=== PATIENT | female | born 1930 | race Asian ===

== ENCOUNTER 2018-08-25 20:13 | Inpatient (IN) | payer MEDICAID, MEDICARE ==
[~2018-08-25] VITALS: Ht 154.9 cm; Wt 68.9 kg
[~2018-08-25 20:13] MED LIST: ALEN70TA3 PO; AMLO5TAB4 PO; ASPI-1154 PO; GLIM2TAB58 PO; HCT25 PO; LOSA25TA3 PO; METO-442 PO; NEU100 PO; PIOG15TA8 PO; SIMV40TA2 PO
[2018-08-25 20:18] VITALS: BP_SYST 169
--- NOTE | 2018-08-25 20:23 | NUR ---
Placed in room 5 . Placed on air sampling and monitoring, blood pressure machine and pulse oximeter. To gown for exam. Side rails up. Report given to ETIENNE ELIZABETH.
--- NOTE | 2018-08-25 20:24 | NUR ---
Pt was brought in by niece complaining of shortness of breath, generalized weakness, and headache for the past month. Per niece, pt came back from the [facility] on 07/28/18 and a few days after is when pt started to feel short of breath and weak. Niece reports pt was seen at the hospital in the [facility] for swelling to bilateral lower extremities and was given Lasix. Pt denies chest pain. No other injuries/complaints per patient or noted.
--- NOTE | 2018-08-25 20:25 | NUR ---
RAMAN Li at bedside examining patient.
[2018-08-25] MEDS ORDERED: IBUPROFEN 400 MG TABLET PO ONE (20:30)
[2018-08-25] MEDS ORDERED: NS 500 ML IV ONE (20:30)
--- NOTE | 2018-08-25 20:44 | NUR ---
Xray at bedside, pt tolerated well.
[2018-08-25 20:49] LABS: BASOPHILS # (AUTO) 0.1 K/uL (0.0-0.2); BASOPHILS % (AUTO) 0.9 % (0.0-2.0); EOSINOPHILS # (AUTO) 0.2 K/uL (0.0-0.4); EOSINOPHILS % (AUTO) 2.4 % (0.0-4.0); HEMATOCRIT 38.8 % (36-48); HEMOGLOBIN 12.5 g/dL (12.0-16.0); LYMPHOCYTES # (AUTO) 2.1 K/uL (1.0-5.5); LYMPHOCYTES % (AUTO) 24.7 % (20.5-51.5); MEAN CORPUSCULAR HEMOGLOBIN 26 pg (27-31); MEAN CORPUSCULAR HGB CONC 32 % (32-36); MEAN CORPUSCULAR VOLUME 80 fL (79.0-98.0); MONOCYTES # (AUTO) 0.7 K/uL (0.0-1.0); MONOCYTES % (AUTO) 8.6 % (1.7-9.3); NEUTROPHILS # (AUTO) 5.4 K/uL (1.8-7.7); NEUTROPHILS % (AUTO) 63.4 % (40.0-70.0); PLATELET COUNT (AUTO) 255 K/uL (130-430); RED BLOOD CELL COUNT(AUTO) 4.83 MIL/uL (4.2-6.2); RED CELL DISTRIBUTION WIDTH 17.4 % (9.0-15.0); WHITE BLOOD COUNT (AUTO) 8.5 K/uL (4.8-10.8)
[2018-08-25 21:00] LABS: ANION GAP 12 (5-15); CALCIUM 8.9 mg/dL (8.4-11.0); CHLORIDE 95 mmol/L (98-107); CREATININE 1.67 mg/dL (0.55-1.30); GLUCOSE 274 mg/dL (70-99); POTASSIUM 3.1 mmol/L (3.5-5.1); SODIUM SERUM 132 mmol/L (136-145); UREA NITROGEN, BLOOD 22 mg/dL (8-21)
--- NOTE | 2018-08-25 21:00 | NUR ---
Assisted patient onto commode for urine sample. Fatimah, EMT, and nurse assisted patient back to [facility]. Pt resting comfortably in bed. Niece at bedside.
[2018-08-25 21:11] LABS: ALANINE AMINOTRANSFERASE 33 U/L (12-78); ALBUMIN 3.4 g/dL (3.4-4.8); ASPARTATE AMINOTRANSFERASE 27 U/L (10-37); TOTAL BILIRUBIN 0.4 mg/dL (0.0-1.0)
[2018-08-25 21:12] LABS: BILIRUBIN,URINE NEGATIVE (NEGATIVE); BLOOD, URINE 1+ (NEGATIVE); CLARITY/URINE CLEAR (CLEAR); COLOR,URINE YELLOW (YELLOW); GLUCOSE,URINE TRACE (NEGATIVE); KETONES,URINE NEGATIVE (NEGATIVE); LEUKOCYTE ESTERASE ,URINE TRACE (NEGATIVE); NITRITE, URINE NEGATIVE (NEGATIVE); PH,URINE 5.5 (5.0-8.0); PROTEIN URINE 1+ (NEGATIVE); UROBILINOGEN,URINE 0.2 (0.2-1.0)
[2018-08-25] MEDS ORDERED: POTASSIUM CHLORIDE 20 MEQ TAB.PRT.SR PO ONE (21:15)
[2018-08-25] MEDS ORDERED: DITXL5 PO (21:29)
[2018-08-25] MEDS ORDERED: ALBMDI INH (21:29)
[2018-08-25] MEDS ORDERED: NOR10 PO (21:29)
[2018-08-25] MEDS ORDERED: BLOO-1609 MC (21:29)
[2018-08-25] MEDS ORDERED: CILO100T PO (21:29)
[2018-08-25] MEDS ORDERED: HYDR-4038 PO (21:29)
[2018-08-25] MEDS ORDERED: INSNLG7030 SUBCUT (21:29)
[2018-08-25] MEDS ORDERED: ASPI-1153 PO (21:29)
[2018-08-25] MEDS ORDERED: FEBU80TA PO (21:29)
[2018-08-25] MEDS ORDERED: LOSA100T3 PO (21:29)
[2018-08-25] MEDS ORDERED: VERA120C2 PO (21:29)
[2018-08-25] MEDS ORDERED: GABA-529 PO (21:29)
[2018-08-25] MEDS ORDERED: [UNRECOGNIZED DRUG - CODE] PO (21:29)
[2018-08-25] MEDS ORDERED: BLOO-1091 MC (21:29)
[2018-08-25] MEDS ORDERED: BUSP5TAB3 PO (21:29)
[2018-08-25] MEDS ORDERED: GABA-531 PO (21:29)
[2018-08-25] MEDS ORDERED: DOCU-144 PO (21:29)
[2018-08-25] MEDS ORDERED: SIMV20TA6 PO (21:29)
[2018-08-25] MEDS ORDERED: ACET325C4 PO (21:29)
[2018-08-25] MEDS ORDERED: GLIM4TAB PO (21:29)
[2018-08-25] MEDS ORDERED: ALEN10TA6 PO (21:29)
[2018-08-25] MEDS ORDERED: LOSA50TA28 PO (21:29)
[2018-08-25] MEDS ORDERED: FURO-150 PO (21:29)
[2018-08-25] MEDS ORDERED: RANI-362 PO (21:29)
--- NOTE | 2018-08-25 21:30 | NUR ---
Medication reconciliation completed with information provided by family. Any prior medication reconciliation on file was reviewed and corrected.
--- NOTE | 2018-08-25 21:31 | NUR ---
RT at bedside obtaining ABG. Pt tolerated well.
[2018-08-25 21:32] LABS: BACTERIA,URINE MODERATE /HPF (None Seen)
[2018-08-25] MEDS ORDERED: INSULIN REGULAR, HUMAN 100 UNITS/ML, 10 ML VIAL SUBCUT ONE (21:45)
[2018-08-25] MEDS ORDERED: hydrALAZINE HCL 20 MG/ML VIAL IVP ONE (22:00)
[2018-08-25] MEDS ORDERED: cefTRIAXone 1 GM IVPB PREMIX 50 ML IV ONE (22:00)
[2018-08-25] MEDS ORDERED: INSULIN REGULAR, HUMAN 10 UNITS/0.1 ML INJ ONE (22:05)
--- NOTE | 2018-08-25 22:21 | NUR ---
Patient will be admitted to care of Dr. Skaggs. Admitted to Telemetry unit. Will go to room 135. Belongings list completed. Summary report printed. Report will be given at bedside.
--- NOTE | 2018-08-25 22:22 | NUR ---
Transfer to Telemetry via ACLS protocol. Licensed nurse present. IV present no signs or symptoms of infiltration.
--- NOTE | 2018-08-25 22:29 | NUR ---
ADMISSION: The patient, MARCOS ANDERSON, 88 y/o, F admitted by BARRETT ARORA MD, WITH THE DIAGNOSIS OF NEW ONSET OF CHF , TO 135 , WILL MOVE TO 102 A AFTER ADMISSION PROCESS FINISH , was given written information regarding hospital policies, unit procedures and contact persons.
[2018-08-25 22:30] VITALS: BP_SYST 155
[2018-08-25 23:12] VITALS: BP_SYST 158
--- NOTE | 2018-08-25 23:27 | NUR ---
SEEN BY DR. ARORA.
[2018-08-25] MEDS ORDERED: ALENDRONATE SODIUM 10 MG TABLET (FOSAMAX) PO SCH (23:30)
[2018-08-25] MEDS ORDERED: LevALBUTEROL HCL 1.25 MG/0.5 ML *CONC.* VIAL.NEB (XOPENEX CONC.) INH PRN (23:30)
--- NOTE | 2018-08-25 23:48 | NUR ---
MORNING CONSULT REASON FOR CONSULT: CHF PERSON I SPOKE WITH: MARY CARMEN CONSULTING PHYSICIAN: DR. SIMONS SECURITIES SALES ASSOCIATE PHONE NUMBER: [phone] ORDERING PHYSICIAN: DR. ARORA
[2018-08-25] MEDS: POTASSIUM CHLORIDE 20 MEQ TAB.PRT.SR PO SCH (23:51)
[2018-08-26 00:30] VITALS: BP_SYST 158
--- NOTE | 2018-08-26 01:36 | NUR ---
ROUNDS Pt is resting in bed with both eyes closed, with visible chest rise and fall with unlabored breathing noted. No complains of pain and no signs of acute distress noted. No needs at this time. Safety precautions in place and call light with pt. Will continue to monitor.
[2018-08-26] MEDS: LevALBUTEROL HCL 1.25 MG/0.5 ML *CONC.* VIAL.NEB (XOPENEX CONC.) INH SCH ×5 (01:51→19:57)
--- NOTE | 2018-08-26 03:10 | NUR ---
ROUNDS Assisted pt to the bedside commode and pt tolerated well. No complains of pain and no signs of acute distress noted. Safety precautions in place and call light with pt. Will continue to monitor.
[2018-08-26 05:32] LABS: BASOPHILS # (AUTO) 0.1 K/uL (0.0-0.2); BASOPHILS % (AUTO) 0.5 % (0.0-2.0); EOSINOPHILS # (AUTO) 0.1 K/uL (0.0-0.4); EOSINOPHILS % (AUTO) 1.4 % (0.0-4.0); HEMATOCRIT 35.5 % (36-48); HEMOGLOBIN 11.6 g/dL (12.0-16.0); LYMPHOCYTES # (AUTO) 2.7 K/uL (1.0-5.5); LYMPHOCYTES % (AUTO) 28.9 % (20.5-51.5); MEAN CORPUSCULAR HEMOGLOBIN 26 pg (27-31); MEAN CORPUSCULAR HGB CONC 33 % (32-36); MEAN CORPUSCULAR VOLUME 80 fL (79.0-98.0); MONOCYTES % (AUTO) 10.7 % (1.7-9.3); NEUTROPHILS # (AUTO) 5.5 K/uL (1.8-7.7); NEUTROPHILS % (AUTO) 58.5 % (40.0-70.0); PLATELET COUNT (AUTO) 228 K/uL (130-430); RED BLOOD CELL COUNT(AUTO) 4.46 MIL/uL (4.2-6.2); RED CELL DISTRIBUTION WIDTH 17.6 % (9.0-15.0); WHITE BLOOD COUNT (AUTO) 9.5 K/uL (4.8-10.8)
[2018-08-26 05:46] LABS: ANION GAP 10 (5-15); CALCIUM 8.7 mg/dL (8.4-11.0); CHLORIDE 101 mmol/L (98-107); CREATININE 1.33 mg/dL (0.55-1.30); GLUCOSE 85 mg/dL (70-99); POTASSIUM 3.1 mmol/L (3.5-5.1); SODIUM SERUM 138 mmol/L (136-145); UREA NITROGEN, BLOOD 22 mg/dL (8-21)
[2018-08-26] MEDS: INSULIN REGULAR, HUMAN 100 UNITS/ML, 10 ML VIAL (humuLIN R) SUBCUT PRN ×4 (06:05→20:56)
--- NOTE | 2018-08-26 06:23 | NUR ---
CLOSING NOTES Pt is resting in bed with both eyes closed, with visible chest rise and fall with unlabored breathing noted. No signs of acute distress or SOB noted. No complains of pain or discomfort at this time. All needs attended throughout the shift. Safety precautions maintained with 3 side rails up, wheels locked, bed alarm on and in lowest level. Call light with pt. Will endorse to day shift nurse.
[2018-08-26] MEDS: GLIMEPIRIDE 2 MG TABLET PO SCH (06:55)
--- NOTE | 2018-08-26 07:50 | NUR ---
INITIAL NOTE RECEIVED PT IN BED, NO S/S OF DISTRESS OR SOB NOTED, PT HAS NO C/O PAIN AT THIS TIME, PT IN STABLE CONDITION. PT AAOX4, VERBAL, IV CATHETER PATENT, NO SIGNS OF INFECTION OR INFILTRATION NOTED, SALINE LOCK. BED AT LOWEST POSITION, CALL LIGHT WITHIN REACH, WILL CONTINUE TO MONITOR PT FOR ANY CHANGES, SAFETY AND FALL PRECAUTIONS IN PLACE. PT ON OXYGEN 2 LITERS VIA NASAL CANNULA, SATURATION OF 96%.
[2018-08-26 08:10] VITALS: BP_SYST 163
[2018-08-26] MEDS: VERAPAMIL HCL 120 MG TABLET.SA PO SCH (08:15)
[2018-08-26] MEDS: POTASSIUM CHLORIDE 20 MEQ TAB.PRT.SR PO SCH (08:16)
[2018-08-26] MEDS: LOSARTAN POTASSIUM 50 MG TABLET (COZAAR) PO SCH (08:16)
[2018-08-26] MEDS: hydrALAZINE HCL 25 MG TABLET PO SCH ×2 (08:16→20:49)
[2018-08-26] MEDS: amLODIPine BESYLATE 10 MG TABLET PO SCH (08:17)
[2018-08-26] MEDS: ASPIRIN 81 MG TABLET(ECOTRIN) PO SCH (08:17)
[2018-08-26] MEDS: GABAPENTIN 300 MG CAPSULE PO SCH ×2 (08:17→20:48)
[2018-08-26] MEDS: busPIRone HCL 5 MG TABLET PO SCH (08:17)
[2018-08-26] MEDS: FUROSEMIDE 20 MG/2 ML VIAL IVP SCH ×2 (08:18→20:50)
[2018-08-26] MEDS: INSULIN Aspart Prota/Aspar MIX 70-30, 100 UNITS/ML, 10 ML VIAL SUBCUT SCH ×2 (08:25→20:55)
[2018-08-26] MEDS: CILOSTAZOL 50 MG TABLET (PLETAL) PO SCH (08:58)
[2018-08-26] MEDS: DOCUSATE SODIUM 100 MG/10 ML UDC PO SCH ×2 (08:58→20:47)
[2018-08-26] MEDS: OXYBUTYNIN CHLORIDE 5 MG TABLET PO SCH ×2 (08:58→20:48)
[2018-08-26] MEDS ORDERED: NON-FORMULARY MEDICATION (Febuxostat (Uloric) 40 MG) PO SCH (09:00)
--- NOTE | 2018-08-26 10:55 | NUR ---
ROUNDS PT IN BED, NO S/S OF DISTRESS OR SOB, PT RESTING COMFORTABLY, PT IN STABLE CONDITION. WILL CONTINUE TO MONITOR PT FOR ANY CHANGES. NO C/O PAIN.PT WATCHING TV.
[2018-08-26 11:31] VITALS: BP_SYST 136
--- NOTE | 2018-08-26 12:40 | NUR ---
ROUNDS PT IN BED, NO S/S OF DISTRESS OR SOB, PT RESTING COMFORTABLY, PT IN STABLE CONDITION. WILL CONTINUE TO MONITOR PT FOR ANY CHANGES. NO C/O PAIN. FAMILY AT BEDSIDE.
--- NOTE | 2018-08-26 14:25 | NUR ---
ROUNDS PT IN BED, NO S/S OF DISTRESS OR SOB, PT RESTING COMFORTABLY, PT IN STABLE CONDITION. WILL CONTINUE TO MONITOR PT FOR ANY CHANGES. NO C/O PAIN.
[2018-08-26 15:32] VITALS: BP_SYST 124
[2018-08-26] MEDS ORDERED: POTASSIUM CHLORIDE 20 MEQ TAB.PRT.SR PO ONE (16:00)
--- NOTE | 2018-08-26 16:00 | NUR ---
MD ROUNDS DR ARORA ROUNDING, AWARE OF PATIENT'S CONDITION, NEW ORDERS GIVEN.
--- NOTE | 2018-08-26 16:07 | NUR ---
CASE MANAGEMENT: CM SPOKE WITH DR. ARORA AND INFORM HIM THAT PATIENT INSURANCE IS OUT OF NETWORK. PER DR. RAORA, PATIENT WILL POSSIBLY BE DISCHARGE TOMORROW IF STABLE. CM TO FOLLOW UP NEEDED.
--- NOTE | 2018-08-26 18:37 | NUR ---
CLOSING NOTE PT IN BED, NO S/S OF DISTRESS OR SOB NOTED, PT HAS NO C/O PAIN AT THIS TIME, PT IN STABLE CONDITION. PT AAOX4, VERBAL, IV CATHETER PATENT, NO SIGNS OF INFECTION OR INFILTRATION NOTED, SALINE LOCK. BED AT LOWEST POSITION, CALL LIGHT WITHIN REACH, WILL ENDORSE CARE OF PT TO INCOMING NURSE, SAFETY AND FALL PRECAUTIONS IN PLACE.
[2018-08-26 19:00] VITALS: BP_SYST 111
--- NOTE | 2018-08-26 19:00 | NUR ---
change of shift.pt.was assisted to the restroom;per analyn;shift production supervisor;gait assessed unsteady requires assistance.bsc available. pt.attended she prefers the restroom but maintain the bsc close to the bed.no c/o pain,nausea.general status stable.respiratory sta stable@room air.call light/telephone placed w/in the reach of the pt.
--- NOTE | 2018-08-26 20:00 | NUR ---
pt.assessed.v/s assessed;values w/in normal limits;diastolic value low;noted.pt.presents quiescent affect;calm.family@the bedside;pt's primary language tagalog;swedish;fluent.i have inquired if the pt.presents pain,nausea.pt.has stated no.she is fine.i have apprised the pt.that snacks/beverages are available w/in the shift.no requests@this hour.i have apprised the pt.that if she become cold to requests blankets.general status stable.respiratory status stable.call light/telephone w/in the reach of the pt.pt.capable to repositio self.
--- NOTE | 2018-08-26 20:30 | NUR ---
i have assessed the blood glucose;value;203mg/dl.
[2018-08-26] MEDS: SIMVASTATIN 20 MG TABLET PO SCH (20:48)
[2018-08-26] MEDS: FAMOTIDINE 20 MG TABLET PO SCH (20:48)
[2018-08-26] MEDS: ENOXAPARIN SODIUM 30 MG/0.3 ML SYRINGE SUBCUT SCH (20:57)
--- NOTE | 2018-08-26 21:00 | NUR ---
2100p medications administered.i have administered;lasix;20mg ivp; i have apprised the pt/family that the pt.will urinate in excess for the proximate 2-3hrs;pt.understanding to call nsg for assistance to the restroom/bsc.i have administered;regular: insulin;4-units per sliding scale./i have administered humalog;mix;70-30 20 units.i have administered lovenox;30mg sq. pty.has requested snacks. have provided saltine crackers/jello x1 cup.i have apprised pt.to presents additional requests snacks;no reservations.
--- NOTE | 2018-08-26 22:00 | NUR ---
pt.assessed.pt.had requested assistance;to urinate.pt.assisted to the bsc;per analyn;lamp shades supervisor.pt.assisted return to bed. no c/o pain,nausea.pt.capable to reposition self.general status stable.respiratory status stable.call light/telephone placed w/in the reach of the pt.
--- NOTE | 2018-08-27 | NUR ---
pt.assessed.v/s assessed;pt.had requested medication;pain:pt.stated 2/t cramps.i have administered tylenol:650mg po;to f/u re:pain medication efficacy per pain mgx protocol.pt.assessed for cleanliness.pt.capable to reposition self.call light/telephone placed w/in the reach of the pt.
[2018-08-27] MEDS: ACETAMINOPHEN 325 MG TABLET PO PRN ×3 (00:02→14:32)
[2018-08-27] MEDS: LevALBUTEROL HCL 1.25 MG/0.5 ML *CONC.* VIAL.NEB (XOPENEX CONC.) INH SCH ×4 (00:24→19:42)
[2018-08-27 00:53] VITALS: BP_SYST 142
--- NOTE | 2018-08-27 02:00 | NUR ---
pt.assessed.i have assisted the pt.to the bsc.i have attended to the bsc;cxegay5rr.cleaned.i have assisted the pt's repositioning in the bed.general status stable,respiratory status stable.call light/telephone placed w/in the reach of the pt.
--- NOTE | 2018-08-27 04:00 | NUR ---
pt.assessed.pt.present quiescent affect;calm,somnolent.general status stable.respiratory status stable@room air;unlabored. pt.capable to reposition self.call light./telephone placed w/in the reach of the pt.
[2018-08-27 06:18] LABS: ANION GAP 7 (5-15); CALCIUM 8.6 mg/dL (8.4-11.0); CHLORIDE 100 mmol/L (98-107); CREATININE 1.76 mg/dL (0.55-1.30); GLUCOSE 104 mg/dL (70-99); POTASSIUM 3.5 mmol/L (3.5-5.1); SODIUM SERUM 133 mmol/L (136-145); UREA NITROGEN, BLOOD 31 mg/dL (8-21)
[2018-08-27] MEDS: GLIMEPIRIDE 2 MG TABLET PO SCH (06:24)
--- NOTE | 2018-08-27 06:30 | NUR ---
i pt.ass i have assisted the pt.to the bsc.i have assisted the pt's return to bed;pt.repositioned.i have assessed the blood glucose; value;95mg/dl.i have weighed the pt:chf/lasix.pt.had requested tylenol;i have administered [id number] po;to f/u re;pain medication efficacy per pain mgx protocol.i have administered amaryl;general status stable.respiratory status stable;unlabored;call light/telephone placed w/in the reach of the pt.
--- NOTE | 2018-08-27 07:50 | NUR ---
INITIAL NOTE RECEIVED PT IN BED, NO S/S OF DISTRESS OR SOB NOTED, PT HAS NO C/O PAIN AT THIS TIME, PT IN STABLE CONDITION. PT AAOX4, VERBAL, IV CATHETER PATENT, NO SIGNS OF INFECTION OR INFILTRATION NOTED, SALINE LOCK. BED AT LOWEST POSITION, CALL LIGHT WITHIN REACH, WILL CONTINUE TO MONITOR PT FOR ANY CHANGES, SAFETY AND FALL PRECAUTIONS IN PLACE. PT ON ROOM AIR, SATURATION OF 97%.
[2018-08-27 08:30] VITALS: BP_SYST 145
[2018-08-27] MEDS: DOCUSATE SODIUM 100 MG/10 ML UDC PO SCH ×2 (08:39→20:58)
[2018-08-27] MEDS: busPIRone HCL 5 MG TABLET PO SCH (08:40)
[2018-08-27] MEDS: ASPIRIN 81 MG TABLET(ECOTRIN) PO SCH (08:40)
[2018-08-27] MEDS: POTASSIUM CHLORIDE 20 MEQ TAB.PRT.SR PO SCH (08:40)
[2018-08-27] MEDS: CILOSTAZOL 50 MG TABLET (PLETAL) PO SCH (08:40)
[2018-08-27] MEDS: GABAPENTIN 300 MG CAPSULE PO SCH ×2 (08:40→20:55)
[2018-08-27] MEDS: INSULIN Aspart Prota/Aspar MIX 70-30, 100 UNITS/ML, 10 ML VIAL SUBCUT SCH ×2 (08:41→21:13)
[2018-08-27] MEDS: OXYBUTYNIN CHLORIDE 5 MG TABLET PO SCH ×2 (08:52→20:54)
[2018-08-27] MEDS: amLODIPine BESYLATE 10 MG TABLET PO SCH (08:52)
[2018-08-27] MEDS: FUROSEMIDE 20 MG/2 ML VIAL IVP SCH ×2 (08:53→21:00)
--- NOTE | 2018-08-27 10:30 | NUR ---
ROUNDS PT IN BED, NO S/S OF DISTRESS OR SOB, PT RESTING COMFORTABLY, PT IN STABLE CONDITION. WILL CONTINUE TO MONITOR PT FOR ANY CHANGES. NO C/O PAIN. PT AMBULATED WITH PHYSICAL THERAPY.
[2018-08-27] MEDS: LOSARTAN POTASSIUM 50 MG TABLET (COZAAR) PO SCH (11:03)
[2018-08-27] MEDS: hydrALAZINE HCL 25 MG TABLET PO SCH ×2 (11:04→21:00)
[2018-08-27] MEDS: VERAPAMIL HCL 120 MG TABLET.SA PO SCH (11:07)
[2018-08-27] MEDS: INSULIN REGULAR, HUMAN 100 UNITS/ML, 10 ML VIAL (humuLIN R) SUBCUT PRN ×3 (11:13→21:59)
--- NOTE | 2018-08-27 12:10 | NUR ---
ROUNDS PT IN BED, NO S/S OF DISTRESS OR SOB NOTED, PT HAS NO C/O PAIN AT THIS TIME, PT IN STABLE CONDITION, PT WATCHING TV AND HAS VISITORS AT BEDSIDE, WILL CONTINUE TO MONITOR PT FOR ANY CHANGES.
[2018-08-27 12:37] VITALS: BP_SYST 152
--- NOTE | 2018-08-27 14:25 | NUR ---
ROUNDS PT IN BED, NO S/S OF DISTRESS OR SOB NOTED, PT HAS NO C/O PAIN, PT TALKING TO FAMILY AT BEDSIDE, WILL CONTINUE TO MONITOR PT FOR ANY CHANGES. PT IN STABLE CONDITION.
[2018-08-27 16:23] VITALS: BP_SYST 115
--- NOTE | 2018-08-27 17:17 | NUR ---
AFIB PATIENT HAS CONVERTED BACK TO AFIB ON TELE MONITOR, DR GAONA ROUNDING AND MADE AWARE. STATED HE WILL ASSESS HER.
--- NOTE | 2018-08-27 17:53 | NUR ---
MD ROUNDS DR ARORA ROUNDING, AWARE OF PATIENT'S CONDITION AND AWARE THAT PT HAS TREMORS AND LEG CRAMPS. MD GAVE NEW ORDERS AND SPOKE WITH FAMILY ABOUT PLAN OF CARE.
--- NOTE | 2018-08-27 18:19 | NUR ---
CLOSING NOTE PT IN BED, NO S/S OF DISTRESS OR SOB NOTED, PT HAS NO C/O PAIN AT THIS TIME, PT IN STABLE CONDITION. PT AAOX4, VERBAL, IV CATHETER PATENT, NO SIGNS OF INFECTION OR INFILTRATION NOTED, SALINE LOCK. BED AT LOWEST POSITION, CALL LIGHT WITHIN REACH, WILL ENDORSE CARE OF PT TO INCOMING NURSE, SAFETY AND FALL PRECAUTIONS IN PLACE. PT ON ROOM AIR, SATURATION OF 97%.
--- NOTE | 2018-08-27 19:24 | NUR ---
CONSULTATION PAGED YES REASON FOR CONSULTATION: TREMOR WAS CONSULT CALLED? YES PERSON WHO WAS NOTIFIED: RIZWAN CONSULTING PHYSICIAN:PACO Savage TECHNICAL EDUCATION TEACHER SPECIALTY: NEUROLOGY TECHNICAL EDUCATION TEACHER PHONE NUMBER: [phone] REQUESTING PHYSICIAN: DR. ARORA
[2018-08-27 19:45] VITALS: BP_SYST 95
--- NOTE | 2018-08-27 19:50 | NUR ---
INITIAL NOTE AT INITIAL ASSESSMENT, PATIENT IS RESTING IN BED, STABLE, NO SIGNS OF RESPIRATORY DISTRESS. PATIENT VERBALIZES NO PAIN. CALL LIGHT- TEACH BACK IS SUCCESSFUL. BED IS LOCKED, ALARMED, AND AT THE LOWEST LEVEL. FALL, SAFETY, AND RESPIRATORY PRECAUTIONS WILL BE IN PLACE THROUGHOUT THE SHIFT.
[2018-08-27] MEDS: FAMOTIDINE 20 MG TABLET PO SCH (20:54)
[2018-08-27] MEDS: SIMVASTATIN 20 MG TABLET PO SCH (20:54)
[2018-08-27] MEDS: ENOXAPARIN SODIUM 30 MG/0.3 ML SYRINGE SUBCUT SCH (21:01)
[2018-08-27] MEDS: AMIODARONE HCL 200 MG TABLET PO SCH (21:14)
--- NOTE | 2018-08-27 21:50 | NUR ---
NOTE BLOOD SUGAR CHECK AT THIS TIME REQUIRES INSULIN COVERAGE PER SSI ORDERED BY MD. AT THIS TIME, PATIENT IS RESTING IN BED, STABLE, NO SIGNS OF RESPIRATORY DISTRESS. CALL LIGHT IS WITHIN REACH. BED IS LOCKED, ALARMED, AND AT THE LOWEST LEVEL.
--- NOTE | 2018-08-27 23:50 | NUR ---
NOTE PATIENT IS SLEEPING, STABLE, NO SIGNS OF RESPIRATORY DISTRESS. CALL LIGHT IS WITHIN REACH. BED IS LOCKED, ALARMED, AND AT THE LOWEST LEVEL.
[2018-08-28 00:23] VITALS: BP_SYST 93
[2018-08-28] MEDS: LevALBUTEROL HCL 1.25 MG/0.5 ML *CONC.* VIAL.NEB (XOPENEX CONC.) INH SCH ×4 (01:25→18:30)
--- NOTE | 2018-08-28 01:50 | NUR ---
NOTE PATIENT IS SLEEPING, STABLE, NO SIGNS OF RESPIRATORY DISTRESS. CALL LIGHT IS WITHIN REACH. BED IS LOCKED, ALARMED, AND AT THE LOWEST LEVEL.
--- NOTE | 2018-08-28 03:03 | NUR ---
NOTE PATIENT IS SLEEPING, STABLE, NO SIGNS OF RESPIRATORY DISTRESS. CALL LIGHT IS WITHIN REACH. BED IS LOCKED, ALARMED, AND AT THE LOWEST LEVEL.
--- NOTE | 2018-08-28 05:03 | NUR ---
NOTE PATIENT IS SLEEPING, STABLE, NO SIGNS OF RESPIRATORY DISTRESS. CALL LIGHT IS WITHIN REACH. BED IS LOCKED, ALARMED, AND AT THE LOWEST LEVEL.
[2018-08-28] MEDS: GLIMEPIRIDE 2 MG TABLET PO SCH (06:16)
--- NOTE | 2018-08-28 06:59 | NUR ---
CLOSING NOTE BLOOD SUGAR CHECK THIS MORNING DID NOT REQUIRE INSULIN COVERAGE PER SSI ORDERED BY MD. PATIENT SLEPT WELL THROUGHOUT THE SHIFT. AT THIS TIME, SHE IS RESTING IN BED, STABLE, NO SIGNS OF RESPIRATORY DISTRESS. CALL LIGHT IS WITHIN REACH. BED IS LOCKED, ALARMED, AND AT THE LOWEST LEVEL. FALL, SAFETY, AND RESPIRATORY PRECAUTIONS HAVE BEEN IN PLACE THROUGHOUT THE NIGHT. WILL CONTINUE TO MONITOR UNTIL SHIFT REPORT IS GIVEN AT BEDSIDE TO AM NURSE.
[2018-08-28 07:45] LABS: ANION GAP 11 (5-15); CHLORIDE 96 mmol/L (98-107); CREATININE 2.46 mg/dL (0.55-1.30); GLUCOSE 147 mg/dL (70-99); POTASSIUM 4.5 mmol/L (3.5-5.1); SODIUM SERUM 131 mmol/L (136-145); UREA NITROGEN, BLOOD 40 mg/dL (8-21)
[2018-08-28 08:30] VITALS: BP_SYST 148
[2018-08-28] MEDS: DOCUSATE SODIUM 100 MG/10 ML UDC PO SCH ×2 (08:36→20:42)
[2018-08-28] MEDS: ASPIRIN 81 MG TABLET(ECOTRIN) PO SCH (08:37)
[2018-08-28] MEDS: busPIRone HCL 5 MG TABLET PO SCH (08:37)
[2018-08-28] MEDS: POTASSIUM CHLORIDE 20 MEQ TAB.PRT.SR PO SCH (08:37)
[2018-08-28] MEDS: OXYBUTYNIN CHLORIDE 5 MG TABLET PO SCH ×2 (08:37→20:42)
[2018-08-28] MEDS: GABAPENTIN 300 MG CAPSULE PO SCH ×2 (08:37→20:42)
[2018-08-28] MEDS: CILOSTAZOL 50 MG TABLET (PLETAL) PO SCH (08:38)
[2018-08-28] MEDS: amLODIPine BESYLATE 10 MG TABLET PO SCH (08:39)
[2018-08-28] MEDS: AMIODARONE HCL 200 MG TABLET PO SCH ×2 (08:39→20:43)
[2018-08-28] MEDS: FUROSEMIDE 20 MG/2 ML VIAL IVP SCH ×2 (08:39→20:42)
[2018-08-28] MEDS: INSULIN Aspart Prota/Aspar MIX 70-30, 100 UNITS/ML, 10 ML VIAL SUBCUT SCH ×2 (08:42→20:51)
[2018-08-28] MEDS: hydrALAZINE HCL 25 MG TABLET PO SCH ×2 (08:44→20:43)
[2018-08-28] MEDS: LOSARTAN POTASSIUM 50 MG TABLET (COZAAR) PO SCH (08:47)
--- NOTE | 2018-08-28 10:20 | NUR ---
ROUNDS PT IN BED, NO S/S OF DISTRESS OR SOB NOTED, PT HAS NO C/O PAIN AT THIS TIME, PT IN STABLE CONDITION, PT WATCHING TV AND HAS NEPHEW AT BEDSIDE VISITING, WILL CONTINUE TO MONITOR PT FOR ANY CHANGES.
[2018-08-28] MEDS: INSULIN REGULAR, HUMAN 100 UNITS/ML, 10 ML VIAL (humuLIN R) SUBCUT PRN ×3 (12:02→20:54)
--- NOTE | 2018-08-28 12:10 | NUR ---
ROUNDS PT IN BED, NO S/S OF DISTRESS OR SOB NOTED, PT HAS NO C/O PAIN AT THIS TIME, PT IN STABLE CONDITION, PT EATING LUNCH, WILL CONTINUE TO MONITOR PT FOR ANY CHANGES.
[2018-08-28 12:30] VITALS: BP_SYST 117
--- NOTE | 2018-08-28 12:37 | NUR ---
PAGED PAGED BARRETT PAK AT [phone] SPOKE WITH ESSIE.
--- NOTE | 2018-08-28 14:25 | NUR ---
ROUNDS PT IN BED, NO S/S OF DISTRESS OR SOB NOTED, PT HAS NO C/O PAIN AT THIS TIME, PT IN STABLE CONDITION, PT WATCHING TV, WILL CONTINUE TO MONITOR PT FOR ANY CHANGES.
--- NOTE | 2018-08-28 16:16 | NUR ---
MD ROUNDS DR ARORA ROUNDING, AWARE OF PATIENT'S CONDITION.
--- NOTE | 2018-08-28 16:55 | NUR ---
ROUNDS PT IN BED, NO S/S OF DISTRESS OR SOB NOTED, PT HAS NO C/O PAIN AT THIS TIME, PT IN STABLE CONDITION, PT TALKING WITH FAMILY AT BEDSIDE, WILL CONTINUE TO MONITOR PT FOR ANY CHANGES.
[2018-08-28 17:06] VITALS: BP_SYST 119; BP_SYST 127
[2018-08-28] MEDS ORDERED: MEROPENEM 1 GM IVPB PREMIX 50 ML IV ONE (18:00)
--- NOTE | 2018-08-28 18:36 | NUR ---
CLOSING NOTE PT IN BED, NO S/S OF DISTRESS OR SOB NOTED, PT HAS NO C/O PAIN AT THIS TIME, PT IN STABLE CONDITION. PT AAOX4, VERBAL, IV CATHETER INFILTRATED, REMOVED IV CATHETER, NO ACTIVE BLEEDING NOTED, DRESSING IN PLACE. BED AT LOWEST POSITION, CALL LIGHT WITHIN REACH, WILL ENDORSE CARE OF PT TO INCOMING NURSE, SAFETY AND FALL PRECAUTIONS IN PLACE. PT ON ROOM AIR, SATURATION OF 97%.
--- NOTE | 2018-08-28 18:59 | NUR ---
IV INSERTION: IV started on right hand 22 gauge. Successful after one attempt. Will observe for any signs of infiltration. Pt tolerated procedure, aseptic technique used.
[2018-08-28 19:45] VITALS: BP_SYST 108
--- NOTE | 2018-08-28 19:45 | NUR ---
INITIAL NOTE AT INITIAL ASSESSMENT, PATIENT IS RESTING IN BED, STABLE, NO SIGNS OF RESPIRATORY DISTRESS. PATIENT VERBALIZES NO PAIN. CALL LIGHT- TEACH BACK IS SUCCESSFUL. BED IS LOCKED, ALARMED, AND AT THE LOWEST LEVEL. FALL, SAFETY, ISOLATION AND RESPIRATORY PRECAUTIONS WILL BE IN PLACE THROUGHOUT THE SHIFT.
[2018-08-28] MEDS: FAMOTIDINE 20 MG TABLET PO SCH (20:44)
[2018-08-28] MEDS: ENOXAPARIN SODIUM 30 MG/0.3 ML SYRINGE SUBCUT SCH (20:44)
[2018-08-28] MEDS: SIMVASTATIN 20 MG TABLET PO SCH (20:44)
--- NOTE | 2018-08-28 23:45 | NUR ---
NOTE PATIENT IS SLEEPING, STABLE, NO SIGNS OF RESPIRATORY DISTRESS. CALL LIGHT IS WITHIN REACH. BED IS LOCKED, ALARMED, AND AT THE LOWEST LEVEL.
[2018-08-29 00:15] VITALS: BP_SYST 133
[2018-08-29] MEDS: LevALBUTEROL HCL 1.25 MG/0.5 ML *CONC.* VIAL.NEB (XOPENEX CONC.) INH SCH ×4 (01:13→19:40)
--- NOTE | 2018-08-29 01:45 | NUR ---
NOTE PATIENT IS SLEEPING, STABLE, NO SIGNS OF RESPIRATORY DISTRESS. CALL LIGHT IS WITHIN REACH. BED IS LOCKED, ALARMED, AND AT THE LOWEST LEVEL.
--- NOTE | 2018-08-29 03:45 | NUR ---
NOTE PATIENT IS SLEEPING, STABLE, NO SIGNS OF RESPIRATORY DISTRESS. CALL LIGHT IS WITHIN REACH. BED IS LOCKED, ALARMED, AND AT THE LOWEST LEVEL.
--- NOTE | 2018-08-29 05:15 | NUR ---
NOTE PATIENT IS SLEEPING, STABLE, NO SIGNS OF RESPIRATORY DISTRESS. CALL LIGHT IS WITHIN REACH. BED IS LOCKED, ALARMED, AND AT THE LOWEST LEVEL.
[2018-08-29] MEDS ORDERED: MEROPENEM 1 GM IVPB PREMIX 50 ML IV SCH (06:00)
--- NOTE | 2018-08-29 06:07 | NUR ---
CLOSING NOTE PATIENT SLEPT WELL THROUGHOUT THE SHIFT. AT THIS TIME, AT THIS TIME, SHE IS RESTING IN BED, STABLE, NO SIGNS OF RESPIRATORY DISTRESS. CALL LIGHT IS WITHIN REACH. BED IS LOCKED, ALARMED, AND AT THE LOWEST LEVEL. FALL, SAFETY, ISOLATION, AND RESPIRATORY PRECAUTIONS HAVE BEEN IN PLACE THROUGHOUT THE NIGHT. WILL CONTINUE TO MONITOR UNTIL SHIFT REPORT IS GIVEN AT BEDSIDE TO AM NURSE.
[2018-08-29] MEDS: GLIMEPIRIDE 2 MG TABLET PO SCH (06:55)
[2018-08-29] MEDS: ACETAMINOPHEN 325 MG TABLET PO PRN (07:19)
--- NOTE | 2018-08-29 08:00 | NUR ---
AM NOTES RECEIVED PT IN BED A/O X4 DENIES ANY PAIN OR ORTHER DISCOMFORT. RES EVEN AND UNLABORED. C/O OF MILD COUGH VITALS STABLE . SAFETY AND FALL PRECAUTIONS MAINTAINED. NEEDS ATTENDED. NOT IN ACUTE DISTRESS. IVF INFUSING WELL NO S/S OF INFILTRATION NOTED. POC DISCUSSED WITH PT. VERBALIZED UNDERSTANDING. WILL CONTINUE TO MONITOR
[2018-08-29 08:20] VITALS: BP_SYST 125
[2018-08-29] MEDS: DOCUSATE SODIUM 100 MG/10 ML UDC PO SCH ×2 (09:53→22:25)
[2018-08-29] MEDS: busPIRone HCL 5 MG TABLET PO SCH (09:54)
[2018-08-29] MEDS: OXYBUTYNIN CHLORIDE 5 MG TABLET PO SCH ×2 (09:54→22:27)
[2018-08-29] MEDS: POTASSIUM CHLORIDE 20 MEQ TAB.PRT.SR PO SCH (09:54)
[2018-08-29] MEDS: GABAPENTIN 300 MG CAPSULE PO SCH ×2 (09:54→22:27)
[2018-08-29] MEDS: ASPIRIN 81 MG TABLET(ECOTRIN) PO SCH (09:54)
[2018-08-29] MEDS: hydrALAZINE HCL 25 MG TABLET PO SCH ×2 (09:56→22:27)
[2018-08-29] MEDS: CILOSTAZOL 50 MG TABLET (PLETAL) PO SCH (09:57)
[2018-08-29] MEDS: amLODIPine BESYLATE 10 MG TABLET PO SCH (09:57)
[2018-08-29] MEDS: LOSARTAN POTASSIUM 50 MG TABLET (COZAAR) PO SCH (10:01)
[2018-08-29] MEDS: INSULIN Aspart Prota/Aspar MIX 70-30, 100 UNITS/ML, 10 ML VIAL SUBCUT SCH ×2 (10:08→22:32)
[2018-08-29] MEDS: METOPROLOL SUCCINATE 25 MG TAB.SR.24H (TOPROL XL) PO SCH (10:30)
[2018-08-29] MEDS: AMIODARONE HCL 200 MG TABLET PO SCH ×2 (10:30→22:26)
[2018-08-29] MEDS ORDERED: FUROSEMIDE 20 MG TABLET PO SCH (10:30)
[2018-08-29 11:23] VITALS: BP_SYST 154
[2018-08-29] MEDS ORDERED: FUROSEMIDE 20 MG TABLET PO ONE (11:45)
--- NOTE | 2018-08-29 12:00 | NUR ---
rounds pt stable not in acute distress. denies any pain at this time.needs needs attended. kept comfortable
[2018-08-29 15:28] VITALS: BP_SYST 111
--- NOTE | 2018-08-29 15:57 | NUR ---
DC PLANNING: MAINE SPOKE WITH DR. ARORA REGARDING DC PLANNING. ORDERED FOR DC PLANNING FOR TOMORROW TO HOME WITH HOME HEALTH FOR IV ABX.
--- NOTE | 2018-08-29 16:00 | NUR ---
ROUNDS PT STABLE NOT IN ACUTE DISTRESS. NO S/S OF PAIN OR DISTRESS NOTED
[2018-08-29] MEDS: MEROPENEM 1 GM in NS 100 ML IV SCH (17:23)
[2018-08-29] MEDS: INSULIN REGULAR, HUMAN 100 UNITS/ML, 10 ML VIAL (humuLIN R) SUBCUT PRN ×2 (17:36→22:33)
[2018-08-29] MEDS ORDERED: RIVAROXABAN 15 MG TABLET PO SCH (18:00)
--- NOTE | 2018-08-29 18:52 | NUR ---
closing notes pt stable . resting comfortably. not in resp distress. denies any pain or orther discomfort. needs attended. safety and fall precautions maintained. will give report to night RN
[2018-08-29 21:00] VITALS: BP_SYST 143
--- NOTE | 2018-08-29 22:15 | NUR ---
ASSIST OUT OF BED TO BSC stool noted on 02 NC @ 2 LPM no SOB FALL MEASURES intact .
[2018-08-29] MEDS: SIMVASTATIN 20 MG TABLET PO SCH (22:27)
[2018-08-29] MEDS: FAMOTIDINE 20 MG TABLET PO SCH (22:27)
--- NOTE | 2018-08-30 | NUR ---
BODY weight 153.8 lbs general , patient awake this hour hx of CHF .
[2018-08-30] MEDS: LevALBUTEROL HCL 1.25 MG/0.5 ML *CONC.* VIAL.NEB (XOPENEX CONC.) INH SCH ×3 (00:37→12:57)
[2018-08-30 01:51] VITALS: BP_SYST 118
--- NOTE | 2018-08-30 02:09 | NUR ---
HOURLY ROUNDING Patient awake verbally Responsive assist encourage position change no DIABETIC reaction noted chest movement symmetrical .
--- NOTE | 2018-08-30 02:14 | NUR ---
FALL PRECAUTIONS frequent visual monitor call rivers with patient bed to low position .
--- NOTE | 2018-08-30 05:17 | NUR ---
ASSIST OUT OF BED to BSC fall measures taken & effective patient alert with UNSTEADY GAIT .
[2018-08-30] MEDS: MEROPENEM 1 GM in NS 100 ML IV SCH (06:35)
[2018-08-30] MEDS: GLIMEPIRIDE 2 MG TABLET PO SCH (06:36)
--- NOTE | 2018-08-30 06:48 | NUR ---
BLOOD SUGAR LOW @ 54 MG DL , PATIENT AWAKE ALERT SITTING UP IN BED SKIN DRY WARM VERBALLY INDICATIVE .
--- NOTE | 2018-08-30 06:49 | NUR ---
CRACKERS & JUICE PO GIVEN PO , SUGAR PATIENT TOLERATE CONTINUE TO MONITOR , PATIENT ALERT ASSIST NEEDED SKIN DRY WARM .
--- NOTE | 2018-08-30 06:50 | NUR ---
PHONED PAGE DR MAITE BILLINGSLEY
--- NOTE | 2018-08-30 07:02 | NUR ---
RECHECK OF BSG @ 94 MG DL NO ACUTE DISTRESS NOTES , TOLERATE JUICE & FOOD CRACKERS .
--- NOTE | 2018-08-30 08:00 | NUR ---
ASSUMPTION OF CARE: RECEIVED PT A/A/OX4, DX: DECREASED CARDIAC OUTPUT, R/T NEW ONSET CHF. VITAL SIGNS ARE STABLE, SR-ST ON ENFORCEMENT MANAGER, ASYMPTOMATIC, NO C/O PAIN OR DISCOMFORT, IV SITE INTACT, PATENT, NO REDNESS OR SWELLING, AFEBRILE, ORIENTED TO UNIT, CALL LIGHT PLACED WITHIN REACH. WILL CON'T TO MONITOR AND ASSESS.
[2018-08-30 08:37] VITALS: BP_SYST 162
--- NOTE | 2018-08-30 08:56 | NUR ---
FSBS. RANDOM BLOOD SUGAR CHECKED , 231 MG/DL, PT DENIES NAUSEA, NO HEADACHES, NO S/SX OF HYPO/HYPERGLYCEMIA.
[2018-08-30] MEDS: INSULIN Aspart Prota/Aspar MIX 70-30, 100 UNITS/ML, 10 ML VIAL SUBCUT SCH (09:00)
[2018-08-30] MEDS ORDERED: FUROSEMIDE 20 MG TABLET PO SCH (09:00)
--- NOTE | 2018-08-30 09:00 | NUR ---
DATABASE SECURITY ADMINISTRATOR: MORNING MEDS GIVEN, PER ORDERED BY Jose, TOLERATED WELL, NO SIGNIFICANT CHANGES NOTED AT THIS TIME, WILL CON'T TO MONITOR AND ASSESS.
[2018-08-30 09:17] LABS: BASOPHILS % (AUTO) 0.6 % (0.0-2.0); EOSINOPHILS # (AUTO) 0.3 K/uL (0.0-0.4); EOSINOPHILS % (AUTO) 3.9 % (0.0-4.0); HEMATOCRIT 33.8 % (36-48); HEMOGLOBIN 11.2 g/dL (12.0-16.0); LYMPHOCYTES % (AUTO) 13.7 % (20.5-51.5); MEAN CORPUSCULAR HEMOGLOBIN 27 pg (27-31); MEAN CORPUSCULAR HGB CONC 33 % (32-36); MEAN CORPUSCULAR VOLUME 81 fL (79.0-98.0); MONOCYTES # (AUTO) 0.7 K/uL (0.0-1.0); MONOCYTES % (AUTO) 9.3 % (1.7-9.3); NEUTROPHILS # (AUTO) 5.5 K/uL (1.8-7.7); NEUTROPHILS % (AUTO) 72.5 % (40.0-70.0); PLATELET COUNT (AUTO) 222 K/uL (130-430); RED BLOOD CELL COUNT(AUTO) 4.18 MIL/uL (4.2-6.2); RED CELL DISTRIBUTION WIDTH 17.7 % (9.0-15.0); WHITE BLOOD COUNT (AUTO) 7.6 K/uL (4.8-10.8)
[2018-08-30 09:26] LABS: ANION GAP 9 (5-15); CALCIUM 8.6 mg/dL (8.4-11.0); CHLORIDE 96 mmol/L (98-107); GLUCOSE 231 mg/dL (70-99); POTASSIUM 4.9 mmol/L (3.5-5.1); SODIUM SERUM 129 mmol/L (136-145); UREA NITROGEN, BLOOD 33 mg/dL (8-21)
[2018-08-30] MEDS: CILOSTAZOL 50 MG TABLET (PLETAL) PO SCH (09:28)
[2018-08-30] MEDS: busPIRone HCL 5 MG TABLET PO SCH (09:28)
[2018-08-30] MEDS: hydrALAZINE HCL 25 MG TABLET PO SCH (09:29)
[2018-08-30] MEDS: LOSARTAN POTASSIUM 50 MG TABLET (COZAAR) PO SCH (09:30)
[2018-08-30 09:31] LABS: ALANINE AMINOTRANSFERASE 31 U/L (12-78); ASPARTATE AMINOTRANSFERASE 30 U/L (10-37); TOTAL BILIRUBIN 0.5 mg/dL (0.0-1.0)
[2018-08-30] MEDS: ASPIRIN 81 MG TABLET(ECOTRIN) PO SCH (09:31)
[2018-08-30] MEDS: OXYBUTYNIN CHLORIDE 5 MG TABLET PO SCH (09:31)
[2018-08-30] MEDS: amLODIPine BESYLATE 10 MG TABLET PO SCH (09:32)
[2018-08-30] MEDS: GABAPENTIN 300 MG CAPSULE PO SCH (09:32)
[2018-08-30] MEDS: AMIODARONE HCL 200 MG TABLET PO SCH (09:32)
[2018-08-30] MEDS: DOCUSATE SODIUM 100 MG/10 ML UDC PO SCH (09:34)
[2018-08-30] MEDS: METOPROLOL SUCCINATE 25 MG TAB.SR.24H (TOPROL XL) PO SCH (09:34)
[2018-08-30] MEDS: POTASSIUM CHLORIDE 20 MEQ TAB.PRT.SR PO SCH (09:35)
[2018-08-30 11:26] VITALS: BP_SYST 139
--- NOTE | 2018-08-30 11:30 | NUR ---
GLUCOSE MONITORING: BLOOD SUGAR [id number], NO COVERAGE REQUIRED, PT IS A/A/OX4, CALL LIGHT PLACED WITHIN REACH, WILL CON'T WITH PLAN OF CARE.
--- NOTE | 2018-08-30 12:52 | NUR ---
. PAGED DR ARORA REGARDING IV MERREM MEDICATION IF IT CAN BE ADJUSTED TO Q24H PER [facility], HE STATED THAT HE WILL COME IN TO SEE PATIENT TODAY.
--- NOTE | 2018-08-30 14:10 | NUR ---
DC Planning: Dr. Skaggs is in for dc reevaluation: the pt can go home with HH and PO ABX (no IV ABX needed).-- adina Jacobson made aware.
--- NOTE | 2018-08-30 14:29 | NUR ---
Discharge Planning: [facility] (f [phone] p [phone]) accepted patient for PT and safety eval.
--- NOTE | 2018-08-30 15:00 | NUR ---
NURSES NOTES: PT HAS ORDER FOR DISCHARGE TO HOME WITH HOME HEALTH. [facility] CONTACTED BY FAMILY MEMBER (KEVIN CHUNG). CONFIRMATION OF SCHEDULED VISIT WITH DR.DELA LANDIN, (PCP) ON 09/05/18 MADE WITH DOCTORS OFFICE. FAMILY NOTIFIED OF DISCHARGE ORDERS, WILL TRANSPORT PT TO HOME VIA PRIVATE AUTO, PT IS STABLE, NEEDS MET, NO REQUEST AT THIS TIME, WILL CON'T WITH PLAN OF CARE.
[2018-08-30] MEDS ORDERED: CIPR-211 PO ×3 (15:13→15:15)
[2018-08-30] MEDS ORDERED: RIVA15TA PO (15:22)
[2018-08-30] MEDS ORDERED: AMI200 PO (15:23)
--- NOTE | 2018-08-30 15:36 | NUR ---
Dietitian Recommendations * Recommend CCHO, cardiac diet LP, RD Please refer to Nutrition Assessment for details. Addendum: 08/30/18 at [address] Amended: Links added.
[2018-08-30 16:18] VITALS: BP_SYST 110
--- NOTE | 2018-08-30 16:43 | NUR ---
DC PLANNING: MAINE SPOKE WITH SHERON (INTAKE AT [facility]) @ AND CONFIRMED THAT THEY HAVE ACCEPTED PATIENT. THEY WILL HAVE A NURSE TO EVALUATE PATIENT TOMORROW. MAINE ALSO HAD CONTACTED KEVIN CHUNG ( PATIENT'S NIECE ) @ AND INFORMED HER OF THE HOME HEALTH AGENCY AND HOME HEALTH NURSE WILL VISIT PATIENT AT HOME TOMORROW.
--- NOTE | 2018-08-30 17:35 | NUR ---
GLUCOSE MONITORING: BLOOD SUGAR [id number], NO COVERAGE REQUIRED, WILL CON'T WITH PLAN OF CARE.
[2018-08-30 18:11] VITALS: BP_SYST 110
--- NOTE | 2018-08-30 18:45 | NUR ---
DISCHARGE: PT DISCHARGED TO HOME, WITH PRESCRIPTION AND INSTRUCTIONS FOR FOLLOW-UP CARE WITH PCP. APPT. SCHEDULED FOR 09/05/18, PT AND FAMILY VERBALIZES UNDERSTANDING. IV REMOVED, PRESSURE DRSG APPLIED.
== END 2018-08-30 18:30 | disposition home health service (06) | DRG 194 ==
LOC: SED 20:13 → STU 22:05
PROVIDERS: ADMIT Family Medicine; ATTEND Family Medicine
DX: I13.0 Hypertensive heart and chronic kidney disease with heart failure and stage 1 through stage 4 chronic kidney disease, or unspecified chronic kidney disease (principal); E11.65 Type 2 diabetes mellitus with hyperglycemia; E11.22 Type 2 diabetes mellitus with diabetic chronic kidney disease; N17.9 Acute kidney failure, unspecified; N18.4 Chronic kidney disease, stage 4 (severe); I48.0 Paroxysmal atrial fibrillation; N39.0 Urinary tract infection, site not specified; J45.909 Unspecified asthma, uncomplicated; E78.5 Hyperlipidemia, unspecified; F41.9 Anxiety disorder, unspecified; K21.9 Gastro-esophageal reflux disease without esophagitis; E78.00 Pure hypercholesterolemia, unspecified; E87.6 Hypokalemia; I50.23 Acute on chronic systolic (congestive) heart failure; Z66 Do not resuscitate; Z51.5 Encounter for palliative care; Z85.038 Personal history of other malignant neoplasm of large intestine; Z79.899 Other long term (current) drug therapy; Z79.82 Long term (current) use of aspirin
CPT/HCPCS: 36415; 36600; 71045; 80048; 80053; 81000-TC; 82803-TC; 82962; 83605; 83880; 84484; 85025; 85379; 87040-TC; 87086; 87186-TC; 93005; 93306; 94640; 94760; 96361; 96365; 96375; 99285; G0378; J0360; J0696; J1650; J1815; J1940; J2185; J7040; J7612